=== PATIENT | female | born 1960 | race African-American/Black ===

== ENCOUNTER 2019-04-20 22:33 | Emergency (ER) | payer SELFPAY ==
[~2019-04-20] VITALS: Ht 157.5 cm; Wt 77.2 kg
[2019-04-20 22:40] VITALS: BP 155/84
--- NOTE | 2019-04-20 22:43 | PHYS DOC ---
Past Medical History Past Medical History: No Pertinent History (ANNABEL WELSH APRN) Past Surgical History: Appendectomy, (ANNABEL WELSH APRN) Alcohol Use: None Drug Use: None (ANNABEL WELSH APRN) Attending Signature I have participated in the care of this patient and I have reviewed and agree with all pertinent clinical information above including history, exam, and recommendations. (MARTHA GOMES MD) Adult General Chief Complaint Chief Complaint: FLU SYMPTOM HPI HPI Patient is a 58 year old female who presents with fever, loss of appetite, body aches, nausea, vomiting, and runny nose that started this morning at 7:30 AM. Patient has been able to drink water at home. Patient rates her pain as 8/10 in severity and describes the pain as aches. Complete ROS were reviewed and found to be within normal limits, except as documented in the HPI (ANNABEL WELSH APRN) Allergies Allergies Allergies Coded Allergies Type Severity Reaction Last Updated Verified No Known Drug Allergies 03/25/13 No (MARTHA GOMES MD) Physical Exam Physical Exam Constitutional: Well developed, well nourished, no acute distress, non-toxic appearance. [] HENT: Normocephalic, atraumatic, bilateral external ears normal, bilateral tympanic membranes are pearly reyes, oropharynx moist, no oral exudates, nose turbinates are inflamed. Eyes: PERRLA, EOMI, conjunctiva normal, no discharge. [] Neck: Normal range of motion, no tenderness, supple, no stridor. [] Cardiovascular:Heart rate regular rhythm, no murmur [] Lungs & Thorax: Bilateral breath sounds clear to auscultation [] Skin: Warm, dry, no erythema, no rash. [] Neurologic: Alert and oriented X 3, normal motor function, normal sensory function, no focal deficits noted. [] Psychologic: Affect normal, judgement normal, mood normal. [] (ANNABEL WELSH APRN) Current Patient Data Vital Signs Vital Signs Date Time Temp Pulse Resp B/P (MAP) Pulse Ox O2 Delivery O2 Flow Rate FiO2 04/20/19 22:40 98.6 88 12 155/84 (107) 99 Room Air 98.6 (MARTHA GOMES MD) EKG EKG [] (ANNABEL WELSH APRN) Radiology/Procedures Radiology/Procedures [] (ANNABEL WELSH APRN) Course & Med Decision Making Course & Med Decision Making Pertinent Labs and Imaging studies reviewed. (See chart for details) The patient appears to have a virus clinically. Discussed with patient the importance of drinking plenty of fluids. I also discussed the importance of rest. Discussed with the patient that she can take Zyrtec per label instructions for runny nose. Also discussed the proper control of fever by rotating Tylenol and Ibuprofen at home. A medical screening exam was performed on this patient and the patient does not appear to be having a medical emergency. Her symptoms are not of sufficient severity and within reasonable medical probability it is unlikely the absence of immediate medical attention would result in placing the health of the individual (or, with respect to a woman, the health of the woman or her unborn child) in serious jeopardy, serious impairment to bodily functions, or serious dysfunction of any bodily organ or part. If , the patient is not in labor (ANNABEL WELSH APRN) Dragon Disclaimer Dragon Disclaimer This electronic medical record was generated, in whole or in part, using a voice recognition dictation system. (ANNABEL WELSH APRN) Departure Departure Impression: Primary Impression: Encounter for medical screening examination Additional Impression: Viral syndrome Disposition: 01 HOME, SELF-CARE Condition: STABLE Referrals: NO PCP (PCP) Patient Instructions: Viral Syndrome Additional Instructions: Thank you for visiting [facility]. We appreciate you trusting us with your care. If any additional problems come up don't hesitate to return to visit us. Please follow up with your primary care provider so they can plan additional care if needed and know about the problem that you had. If symptoms worsen come back to the Emergency Department. Any concerning symptoms that start such as chest pain, shortness of air, weakness or numbness on one side of the body, running high fevers or any other concerning symptoms return to the ER. Please fill your medications at any pharmacy and follow the prescription instructions. Please drink plenty of fluids. If unable to keep fluids down please return to ER. Please get Tylenol and Ibuprofen over the counter. Give each medication every 6 hours as directed by the medication labels. In order to utilize the peak of the medications stagger the medications to where the child is getting one of the medications every 3 hours. For example if you give Ibuprofen at 3 PM, you then give Tylenol at 6 PM and Ibuprofen again at 9 PM, and then Tylenol at midnight. Please get Zyrtec over the counter and take per label instructions for runny nose. Problem Qualifiers ANNABEL WELSH APRN Apr 20, 2019 22:43 MARTHA GOMES MD Apr 21, 2019 04:16
== END 2019-04-20 22:54 | disposition home or self-care (01) ==
LOC: ER 22:33
DX: B34.9 Viral infection, unspecified (principal)
CPT/HCPCS: 99281